=== PATIENT | female | born 2000 | race Two or more races ===

== ENCOUNTER 2020-08-18 17:35 | Emergency (ER) | payer OTHER ==
[~2020-08-18] VITALS: Ht 167.6 cm; Wt 59.3 kg
[2020-08-18 17:41] VITALS: BP 124/75
== END 2020-08-18 20:02 | disposition left against medical advice (07) ==
LOC: M ED 17:35
DX: Z53.21 Procedure and treatment not carried out due to patient leaving prior to being seen by health care provider (principal)

== ENCOUNTER 2021-03-08 17:58 | Outpatient (CLI) | payer OTHER ==
[~2021-03-08] VITALS: Ht 170.2 cm; Wt 79.4 kg
[2021-03-08 18:18] VITALS: BP 139/82
[2021-03-08] MEDS ORDERED: TERBUTALINE SULFATE 1 MG/ML VIAL (J3105) SC ONE (20:20)
[2021-03-09] MEDS ORDERED: BETAMETHASONE SOLUSPAN 6MG/ML 5ML VIAL (J0702 PER 3MG) IM SCH
== END 2021-03-09 01:30 | disposition home or self-care (01) ==
LOC: M LDO 17:58
PROVIDERS: ATTEND Obstetrics & Gynecology
DX: O60.03 Preterm labor without delivery, third trimester (principal); Z3A.33 33 weeks gestation of pregnancy
CPT/HCPCS: 59025; 76815; 76817; 76819; 76820; 81001; 82731; 87086; 96372; 96374; G0463; J0702; J3105

== ENCOUNTER 2021-03-09 22:54 | Outpatient (CLI) | payer OTHER | END 2021-03-09 23:45 | disposition home or self-care (01) | LOC: M LDO 22:54 | PROVIDERS: ATTEND Obstetrics & Gynecology | DX: O60.03 Preterm labor without delivery, third trimester (principal); Z3A.33 33 weeks gestation of pregnancy | CPT/HCPCS: 59025; 96372; G0378; G0463 ==

== ENCOUNTER 2022-03-10 11:14 | Emergency (ER) | payer OTHER ==
[~2022-03-10] VITALS: Ht 170.2 cm; Wt 64.1 kg
[2022-03-10 16:14] VITALS: BP 108/70
== END 2022-03-10 16:29 | disposition home or self-care (01) ==
LOC: M ED 11:14
DX: O9A.211 Injury, poisoning and certain other consequences of external causes complicating pregnancy, first trimester (principal); S23.3XXA Sprain of ligaments of thoracic spine, initial encounter; Z3A.12 12 weeks gestation of pregnancy; Z86.16 Personal history of COVID-19

== ENCOUNTER 2022-05-07 20:43 | Outpatient (CLI) | payer OTHER ==
[~2022-05-07] VITALS: Ht 170.2 cm; Wt 67.1 kg
[2022-05-07] MEDS ORDERED: LR 1,000 ML IV SCH (20:50)
[2022-05-07] MEDS ORDERED: LR 1,000 ML IV ONE (20:50)
[2022-05-07 21:00] VITALS: BP 117/68
[2022-05-07] MEDS ORDERED: ONDANSETRON 4MG 2ML VIAL IV PRN (21:30)
[2022-05-07 21:47] LABS: BASO % 0.3 % (0.0-1.0); EOS # 0.8 10^3/uL (0.0-0.5); EOS % 6.6 % (0.0-3.0); HEMATOCRIT 32.2 % (36.0-47.0); HEMOGLOBIN 9.7 g/dl (12.0-15.5); LYMPH # 0.9 10^3/uL (1.5-5.0); LYMPH % 7.1 % (24.0-44.0); MEAN CORPUSCULAR HEMOGLOBIN 18.3 pg (27.0-33.0); MEAN CORPUSCULAR HGB CONC 30.1 g/dl (32.0-36.5); MEAN CORPUSCULAR VOLUME 60.8 fl (80.0-96.0); MONO # 0.6 10^3/uL (0.0-0.8); MONO % 5.1 % (2.0-8.0); NEUTROPHILS # 9.7 10^3/uL (1.5-8.5); NEUTROPHILS % 80.3 % (36.0-66.0); PLATELET COUNT, AUTOMATED 260 10^3/uL (150-450)
[2022-05-07 22:06] LABS: ALBUMIN 2.8 G/DL (3.2-5.2); ALKALINE PHOSPHATASE 82 U/L (46-116); ALT/SGPT 10 U/L (7.0-40); AST/SGOT 18 U/L (<34); BILIRUBIN,TOTAL 0.6 MG/DL (0.3-1.2); BLOOD UREA NITROGEN 9 MG/DL (9-23); CALCIUM LEVEL 8.4 MG/DL (8.5-10.1); CARBON DIOXIDE LEVEL 23 MMOL/L (20-31); CHLORIDE LEVEL 101 MMOL/L (98-107); CREATININE FOR GFR 0.62 MG/DL (0.55-1.30); GLOMERULAR FILTRATION RATE > 60.0 (>60); GLUCOSE, FASTING 82 MG/DL (60-100); POTASSIUM SERUM 3.8 MMOL/L (3.5-5.1); SODIUM LEVEL 134 MMOL/L (136-145); TOTAL PROTEIN 6.5 G/DL (5.7-8.2)
[2022-05-07 22:18] VITALS: BP 107/58
== END 2022-05-07 22:21 | disposition home or self-care (01) ==
LOC: M LDO 20:43
PROVIDERS: ATTEND Obstetrics & Gynecology
DX: O21.8 Other vomiting complicating pregnancy (principal); Z3A.20 20 weeks gestation of pregnancy; O26.892 Other specified pregnancy related conditions, second trimester; R19.7 Diarrhea, unspecified
CPT/HCPCS: 80053; 81000; 81015; 85025; 87086; 96374; G0463; J2405